=== PATIENT | male | born 1955 | race Caucasian/White ===

== ENCOUNTER 2023-08-30 18:38 | Emergency (ER) | payer MEDICARE, SELFPAY ==
--- NOTE | 2023-08-30 18:42 | ECG_ITS ---
SEE SCANNED COPY FOR CONFIRMED REPORT MTDD
[2023-08-30 18:43] VITALS: O2SAT 94
[2023-08-30 18:45] VITALS: BP 212/106; PULSE 114; RESP 28; TEMP 36.7; O2SAT 80
[2023-08-30] MEDS: IPRATROPIUM BR 0.02% INH SOLN 0.5 MG/2.5 ML VIAL INHALATION (18:50)
[2023-08-30] MEDS: ALBUTEROL SULFATE NEB 2.5 MG/3 ML INH INHALATION (18:50)
--- NOTE | 2023-08-30 19:02 | ED.GENADULT ---
HPI - General Adult General Chief complaint: Shortness of Breath/Dyspnea Stated complaint: Shortness Of Breath Time Seen by Provider: 08/30/23 18:40 Source: patient, RN notes reviewed and old records reviewed Mode of arrival: ambulatory Limitations: no limitations History of Present Illness HPI narrative: 67-year-old male with no significant medical history states for the last 9 days he has been extremely short of breath, productive cough, sinus congestion and drainage. Patient has not seen a doctor since before 2011. On arrival patient only talking 2-3 word sentences, retractions noted, blood pressure elevated, tachycardic saturations in 80% On arrival patient placed in room 1, vitals obtained, placed on oxygen. Patient was given a DuoNeb in clinic Onset (ago): day(s) () Associated symptoms: cough, fever/chills and shortness of breath Treatments prior to arrival: none Related Data Allergies Allergy/AdvReac Type Severity Reaction Status Date / Time poison rj extract Allergy Unknown Verified 07/31/15 12:46 Wasp Allergy Unknown Uncoded 07/31/15 12:46 Review of Systems Review of Systems: All systems reviewed & are unremarkable except as noted in HPI and below Constitutional: Constitutional: Reports as per HPI and Reports fatigue Eyes: Eyes: Reports no additional eye complaints ENT: Reports as per HPI and Reports nasal congestion Cardiovascular: Cardiovascular: Reports no additional cardiovascular complaints, Denies chest pain and Denies dyspnea Respiratory: Respiratory: Reports as per HPI, Reports chest congestion, Denies cough and Reports dyspnea Gastrointestinal: Gastrointestinal: Reports no additional gastrointestinal complaints, Denies abdominal pain, Denies nausea and Denies vomiting Neurologic: Reports system reviewed and no additional complaints, except as documented Allergic/Immunologic: Allergic/Immunologic: Reports no additional allergic/immunologic complaints [facility] Past Medical History Medical History (Updated 08/30/23 @ 19:16 by Ratna Brian APRN) Patient denies medical problems Surgical History Surgical History (Updated 08/30/23 @ 19:06 by Ratna Brian APRN) History of appendectomy Social History Social History (Updated 08/30/23 @ 19:06 by Ratna Brian APRN) Smoking status: Current every day smoker Tobacco type: cigarettes Additional smoking assessment comments: Patient been smoking since age 14. Living arrangements: with family Gender identity (if verbalized by the patient): Male Comments At the time of my signature, I reviewed and agree with the nursing past medical, surgical, social, and family history. There is no relevant family history pertinent to the patient complaint. Exam Const: General: cooperative, well developed, alert, acute distress respiratory, ill appearing chronically, uncomfortable and well nourished Nutritional Appearance: well nourished Orientation/consciousness: patient oriented x3 Limitations: no limitations HENMT: Head: normal to inspection Ears: hearing grossly normal bilaterally and external ears normal Face/Nose/Sinus: Normal external nose present and face symmetric Face and sinus: normal facial exam and face symmetric Mouth: Yes Normal oral and palatal mucosa present Eyes: General: appearance normal, both eyes and all related structures Alignment and Position: alignment normal Periorbital: periorbital findings normal Pupils: Equal, round and reactive pupils present EOM: EOMs intact bilaterally Neck: Neck: normal visual inspection, full ROM, no lymphadenopathy and no meningeal signs Chest: Chest palpation & inspection: no tenderness Resp: Effort & Inspection: abnormal respiratory pattern, labored, respiratory distress, retractions intercostal and supraclavicular, no stridor, tachypneic and uses accessory muscles Auscultation: no crackles, no rales, no rhonchi, wheezes and diminished lung sounds bilateral throughout Cardio: Rate: ta
== END 2023-08-30 18:53 | disposition short-term general hospital (02) ==
PROVIDERS: Emergency Provider Nurse Practitioner
DX: R06.03 Acute respiratory distress (principal); R03.0 Elevated blood-pressure reading, without diagnosis of hypertension; R09.02 Hypoxemia; F17.210 Nicotine dependence, cigarettes, uncomplicated
CPT/HCPCS: 93005; 94640; 99215; G0463

== ENCOUNTER 2023-08-30 19:14 | Emergency (ER) | payer MEDICARE, SELFPAY ==
[2023-08-30] VITALS (9 sets, daily range): BP systolic 151–155; BP diastolic 77–110; PULSE 102–127; RESP 18–21; TEMP 36.8; O2SAT 94–100
--- NOTE | ~2023-08-30 | XR_ITS ---
EXAMINATION: XR chest 1V portable Exam Date/Time: 08/30/2023 19:32 CDT HISTORY: sob Comparison: None. RESULT: Lines, tubes, and devices: None. Lungs and pleura: Clear. Cardiomediastinal silhouette: Unremarkable. Other: No acute osseous or upper abdominal finding. IMPRESSION: No acute cardiopulmonary process. Reviewed, dictated and finalized at location K.
--- NOTE | 2023-08-30 19:15 | ECG_ITS ---
SEE SCANNED COPY FOR CONFIRMED REPORT MTDD
[2023-08-30 19:44] LABS: Basophils Absolute Auto 0.1 K/mm3 (0.0-0.1); Basophils Percent Auto 0.8 % (0.2-1.2); Eosinophils Absolute Auto 0.5 K/mm3 (0-0.3); Hematocrit 46.3 % (42.0-52.0); Hemoglobin 15.5 g/dL (14.0-18.0); Immature Granulocyte Absolute 0.02 K/mm3 (0.00-0.031); Immature Granulocyte Percent A 0.2 % (0-0.5); Lymphocytes Absolute Auto 1.61 K/mm3 (0.9-3.2); Lymphocytes Percent Auto 15.8 % (18.3-44.2); Mean Corpuscular HGB Conc 33.5 g/dl (32-36); Mean Corpuscular Hemoglobin 29.1 pg (26-34); Mean Corpuscular Volume 86.9 fl (80-100); Mean Platelet Volume 9.5 fl (7.4-10.4); Monocytes Absolute Auto 0.9 K/mm3 (0.1-0.6); Monocytes Percent Auto 8.6 % (2.6-8.5); Neutrophils Absolute Auto 7.1 K/mm3 (1.3-6.7); Neutrophils Percent Auto 69.6 % (45.5-73.1); Platelet Count Result 286 k/mm3 (150-375); Red Blood Count 5.33 M/mm3 (4.6-6.20); Red Cell Distribution Width 11.8 % (11.5-14.5); White Blood Count 10.2 K/mm3 (4.5-10.0)
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
[2023-08-30 19:53] LABS: Alanine Aminotransferase 47 U/L (6-50); Albumin Level 4.6 g/dL (3.5-5.1); Alkaline Phosphatase 76 U/L (38-126); Anion Gap 9 mmol/L (4-12); Aspartate Amino Transferase 35 U/L (17-59); Bilirubin,Total 0.6 mg/dL (0.2-1.3); Blood Urea Nitrogen 18 mg/dL (9-20); Calcium 9.3 mg/dL (8.4-10.2); Carbon Dioxide 26 mmol/L (22-30); Chloride 106 mmol/L (98-107); Estimated CRCL calculation 83 ml/min; Estimated Glomerular Filt Rate > 60; Glucose 137 mg/dL (65-110); Potassium 3.7 mmol/L (3.4-5.0); Sodium 141 mmol/L (137-145)
[2023-08-30 20:02] LABS: NT Pro B Type Natriuretic Pept 161 pg/mL (19.9-100)
[2023-08-30 20:20] LABS: Influenza A QL RT-PCR Negative (Negative); Influenza B QL RT-PCR Negative (Negative); RSV RNA, RT-PCR Negative (Negative); SARS-CoV-2 RNA PCR Negative (Negative)
[2023-08-30] MEDS: IPRATROPIUM BR 0.02% INH SOLN 0.5 MG/2.5 ML VIAL 1.5 MG INHALATION (20:43)
[2023-08-30] MEDS: ALBUTEROL SULFATE NEB 2.5 MG/3 ML INH 15 MG INHALATION (20:43)
[2023-08-30 20:53] LABS: Alveolar/Arterial O2 Gradient 73.2 mmHg; Base Excess ABG -1.3 mEq/l (+/-2.0); Carboxyhemoglobin 0.3 % THb (0-2.0); Fractional Inspired Oxygen 25 %; Methemoglobin ABG 0.2 %THb (0-1.5); Oxygen Content ABG 20.3 %vol (16.0-22.0); Oxygen Saturation ABG 93.9 % (95.0-100.0); Oxyhemoglobin 92.5 % THb (90.0-100.0); PO2 ABG 65.9 mmHg (80.0-100.0); PO2 FiO2 Ratio Arterial Blood 2.64 %; Total Hemoglobin 15.6 g/dL (12.0-18.0); pH ABG 7.441 (7.350-7.450)
[2023-08-30 20:54] LABS: Device NASAL CANNULA; Modified Allen's Test Pass; Site Drawn LEFT RADIAL
[2023-08-30] MEDS: ALBUTEROL SULFATE (*SP) INHALER 2 PUFF INHALATION (22:56)
== END 2023-08-30 23:04 | disposition home or self-care (01) ==
PROVIDERS: Emergency Medicine; Emergency Provider Physician Assistant
DX: J20.9 Acute bronchitis, unspecified (principal); F17.210 Nicotine dependence, cigarettes, uncomplicated; Z20.822 Contact with and (suspected) exposure to COVID-19
CPT/HCPCS: 36415; 36600; 71045; 80053; 82375; 82805; 83050; 83880; 85025; 87637; 93005; 94640; 94664; 99284; A9270

== ENCOUNTER 2023-09-08 18:13 | Emergency (ER) | payer MEDICARE, SELFPAY ==
[2023-09-08 18:21] VITALS: BP 174/86; PULSE 107; RESP 20; TEMP 36.7; O2SAT 93
--- NOTE | 2023-09-08 18:25 | ED.SOB ---
HPI - SOB/Dyspnea General Chief Complaint: Shortness of Breath/Dyspnea Stated Complaint: Shortness of Breath Time Seen by Provider: 09/08/23 18:41 Source: patient and RN notes reviewed Mode of arrival: ambulatory Limitations: no limitations History of Present Illness HPI Narrative: 67-year-old male presents with concern for shortness of breath. Reports he was seen in the emergency room about a week ago, he was given breathing treatments and was sent home with a prescription for steroid which he finished. Reports when he finished the steroid his symptoms slowly start to return and he has been having worsening shortness of breath the last few days. He denies fever. He reports he last used his albuterol inhaler to prior to arrival. MD elicited complaint: shortness of breath Related Data Allergies Allergy/AdvReac Type Severity Reaction Status Date / Time poison rj extract Allergy Unknown Unknown Verified 09/08/23 18:29 Wasp Allergy Unknown Unknown Uncoded 09/08/23 18:29 Review of Systems Review of Systems: CONSTITUTIONAL: Denies malaise, chills, sweats, or fever. ENT: Denies rhinorrhea, congestion, sinus pain, otalgia and sore throat. CARDIOVASCULAR: Denies chest pain, palpitations, or edema. RESPIRATORY: Reports cough, wheezing, dyspnea. GASTROINTESTINAL: Denies abdominal pain, nausea, vomiting, diarrhea SKIN: Denies rash or itching. MUSCULOSKELETAL: Denies myalgia. NEUROLOGIC: Denies headache. All systems reviewed & are unremarkable except as noted in HPI and below PMFSH Past Medical History Medical History (Updated 09/08/23 @ 19:35 by Ratna Pak NP) Patient denies medical problems Surgical History Surgical History (Updated 08/30/23 @ 19:06 by Ratna Brian APRN) History of appendectomy Social History Social History (Updated 08/30/23 @ 19:06 by Ratna Brian APRN) Smoking status: Current every day smoker Tobacco type: cigarettes Additional smoking assessment comments: Patient been smoking since age 14. Living arrangements: with family Gender identity (if verbalized by the patient): Male Comments At time of signature, agree with nursing past medical, surgical, social and family history. There is no relevant family history pertinent to the presenting complaint Exam Narrative: GENERAL: Nontoxic-appearing, well-nourished, and in no acute distress. HEAD: Normocephalic EYES: PERRLA, conjunctivae clear ENT: Nares clear. Mucous membranes moist. TM pearly ramos with dull light reflex bilaterally; no tragal tenderness. Oropharynx not erythematous without lesions. Tonsils not enlarged and without exudate, no drooling, no hoarseness, no trismus, uvula midline. NECK: Supple. No lymphadenopathy CHEST: Scattered expiratory and inspiratory wheeze, with scattered rhonchi. Breath sounds equal. No rales, or stridor. No respiratory distress, speaks in full sentences. HEART: Regular rate and rhythm. No murmur heard. SKIN: Warm, dry, no rash. NEURO: Alert and oriented x3. PSYCH: Normal mood and affect Course Course Emergency Course: Patient is aware of diagnosis, understands and agrees to treatment plan. Anticipatory guidance given. Patient agrees to follow-up as directed and is aware of reasons to seek care at the emergency department. Portions of this record may have been created with voice recognition software Level of Care: Express Care Visit Reevaluation(s) Reevaluation #1: Re-evaluation after DuoNeb with not much improvement to patient's lung sounds. Will repeat DuoNeb and do IM steroid. I advised patient that after 2 DuoNebs and steroid if his lung sounds do not improve he will need to be transferred to the emergency room Date: 09/08/23 Time: 19:14 Reevaluation #2: Re-evaluated after the 2nd DuoNeb. Lung sounds improved, still scattered wheeze, patient reports symptoms are improved. Will discharge with steroid, antibiotic, nebulizer solution and neb prescription. Anticipatory guidance
[2023-09-08] MEDS: ALBUTEROL SULFATE NEB 2.5 MG/3 ML INH INHALATION ×2 (18:49→19:13)
[2023-09-08] MEDS: IPRATROPIUM BR 0.02% INH SOLN 0.5 MG/2.5 ML VIAL INHALATION ×2 (18:49→19:12)
[2023-09-08] MEDS: methylPREDNISolone SOD SUCC 125 MG VIAL IM (19:13)
== END 2023-09-08 19:47 | disposition home or self-care (01) ==
PROVIDERS: Emergency Provider Nurse Practitioner
DX: R06.2 Wheezing (principal); F17.210 Nicotine dependence, cigarettes, uncomplicated
CPT/HCPCS: 94640; 96372; 99213; G0463; J2919

== ENCOUNTER 2023-10-01 11:03 | Emergency (ER) | payer MEDICARE, SELFPAY ==
--- NOTE | ~2023-10-01 | XR_ITS ---
EXAMINATION: XR chest 2V 10/01/2023 11:34 INDICATION: Cough for one month PROCEDURE: 2 view chest COMPARISON: 08/30/2023 FINDINGS: The lungs are clear. The cardiomediastinal silhouette is within normal limits. There are no pleural effusions. There is no pneumothorax suspected. IMPRESSION: 1: NO ACUTE CARDIOPULMONARY DISEASE. Reviewed, dictated and finalized at location B.
[2023-10-01 11:19] VITALS: BP 144/78; PULSE 124; RESP 24; TEMP 36.3; O2SAT 90
--- NOTE | 2023-10-01 11:19 | ED.GENADULT ---
HPI - General Adult General Chief complaint: Upper Respiratory Infection Stated complaint: sob Time Seen by Provider: 10/01/23 11:19 History of Present Illness HPI narrative: 67-year-old male presents with complaint of cough, chest congestion, wheezing, shortness of exertion for the past month. patient reports worsening of symptoms over the past week. Waking up at night feeling short of breath, like he is suffocating and coughing. Has to run to the bathroom in the middle night due to cough causing him to be incontinent. Patient was seen at [place] in August and seen at [facility] and september. Given albuterol inhaler, albuterol neb and nebulizer machine. Has been on 2 courses of oral prednisone. Last checks x-ray in August was normal. Has appointment with [facility] November 02. Patient currently does not have a primary care physician. All systems reviewed and negative except as noted above. Related Data Home Medications Medication Instructions Recorded Confirmed albuterol 90 mcg/actuation aerosol 90 mcg inhalation PRN PRN 10/01/23 10/01/23 inhaler Shortness Of Breath Or Wheezing Allergies Allergy/AdvReac Type Severity Reaction Status Date / Time poison rj extract Allergy Severe Anaphylaxis Verified 10/01/23 11:32 Wasp Allergy Severe Anaphylaxis Uncoded 10/01/23 11:32 Review of Systems Review of Systems: CONSTITUTIONAL: Denies fever, chills, or sweats. EYES: Denies visual changes, redness, or discharge. ENT: Denies rhinorrhea, congestion, sore throat, or otalgia. CARDIOVASCULAR: Denies chest pain, palpitations, or edema. RESPIRATORY: Reports cough, wheezing, chest tightness, dyspnea with exertion. GASTROINTESTINAL: Denies abdominal pain, nausea, vomiting, or diarrhea. GENITOURINARY: Denies dysuria or hematuria. SKIN: Denies rash or itching. MUSCULOSKELETAL: Denies back pain, joint pain, or myalgia. NEUROLOGIC: Denies headache, numbness, or weakness. PSYCHIATRIC: Denies anxiety or depression. All other systems reviewed are negative, except as documented in HPI. [facility] Past Medical History Medical History (Updated 10/01/23 @ 12:16 by Adriana Randolph NP) Patient denies medical problems Surgical History Surgical History (Updated 08/30/23 @ 19:06 by Ratna Brian APRN) History of appendectomy Social History Social History (Updated 08/30/23 @ 19:06 by Ratna Brian, CHARLES) Smoking status: Current every day smoker Tobacco type: cigarettes Additional smoking assessment comments: Patient been smoking since age 14. Living arrangements: with family Gender identity (if verbalized by the patient): Male Comments At time of signature, agree with nursing past medical, surgical, social and family history. There is no relevant family history pertinent to the presenting complaint. Exam Narrative: GENERAL: This is a well-nourished, well-developed patient, in no apparent distress. HEAD: normocephalic, atraumatic. EYES: PERRL. Sclera clear/white. Vision is grossly intact. EARS: External ears normal, auditory canals clear and without drainage, TMs normal without perforation. Hearing grossly intact. NOSE: External nose normal with no obvious nasal discharge, nares without redness, no rhinorrhea. THROAT: Mucous membranes moist, posterior pharynx clear. NECK: Neck supple, non-tender without lymphadenopathy, masses or thyromegaly. CARDIOVASCULAR: Regular rate and rhythm without murmurs, gallops, or rubs. RESPIRATORY: wheezing on expiration worse to right lung shultz. Breath sounds equal bilaterally. No rales, or rhonchi. GASTROINTESTINAL: Abdomen soft, non-tender, nondistended. Bowel sounds are active. No hepato-splenomegaly, or palpable masses. No guarding. SKIN: warm, Dry, intact with no suspicious lesions or rash, good texture and turgor. NEURO: awake, alert, and oriented to person, place and time. There were no obvious focal neurologic abnormalities. EXTREMITIES: No joint tendern
[2023-10-01] MEDS: IPRATROPIUM 0.5 MG/ALBUTEROL SULFATE 2.5 MG AMPUL.NEB 3 ML INHALATION (11:37)
[2023-10-01 11:40] VITALS: PULSE 124; RESP 24; O2SAT 90
[2023-10-01 11:55] VITALS: PULSE 128; RESP 24; O2SAT 90
== END 2023-10-01 12:16 | disposition short-term general hospital (02) ==
PROVIDERS: Emergency Provider Nurse Practitioner Family; Referring Provider Emergency Medicine
DX: R09.02 Hypoxemia (principal); R06.2 Wheezing; F17.210 Nicotine dependence, cigarettes, uncomplicated
CPT/HCPCS: 71046; 94640; 99213; G0463

== ENCOUNTER 2023-10-01 12:38 | Inpatient (IN) | payer MEDICARE, SELFPAY ==
[2023-10-01] VITALS (17 sets, daily range): BP systolic 153–176; BP diastolic 69–96; PULSE 56–120; RESP 16–24; TEMP 36.8–36.9; O2SAT 86–99
--- NOTE | ~2023-10-01 | XR_ITS ---
Clinical Indication: Shortness of breath PA and lateral views of the chest: Comparison: 10/01/2023 at 11:32 AM Findings: The lungs are clear, without evidence of focal consolidation or pleural effusion. Cardiome diastinal silhouette is within normal limits. Bones and soft tissues are unremarkable. Impression: Normal chest. Reviewed, dictated and finalized at location . Impression: Normal chest.
--- NOTE | ~2023-10-01 | US_ITS ---
EXAMINATION:US venous doppler LE BI INDICATION:DVT. Shortness of breath. TECHNIQUE: Multiple grayscale, color flow and Doppler images of the right and left lower extremity de ep venous systems were obtained and reviewed. COMPARISON:No prior studies for comparison. FINDINGS: The common femoral, superficial femoral and popliteal veins demonstrate normal respiratory variation, augmentation and compressibility. Color flow is also seen within the posterior tibial, pe roneal, greater saphenous and profunda veins. IMPRESSION: 1: No lower extremity deep venous thrombosis. Reviewed, dictated and finalized at location B.
--- NOTE | ~2023-10-01 | CT_ITS ---
EXAMINATION: CTA chest PE protocol DATE: 10/03/2023 16:51 INDICATION: Shortness of breath. TECHNIQUE: Computed tomography angiography (CTA) of the chest was performed with 100 mL Omnipaque-350 intravenous contrast timed to evaluate the pulmonary arteries. Coronal maximum intensity projection 3D-reconstructions were created by the technologist. Automated exposure control and iterative reconst ruction technique were employed. The dose-length product was 647.91 mGy-cm. COMPARISON: None. FINDINGS: There is mild emphysema. There is mild scarring at the lung apices. There is mucous pluggin g in the lower lobes. There is mild atelectasis bilaterally. Calcified pulmonary nodules and calcifie d hilar mediastinal lymph nodes are consistent with old granulomatous disease. No pleural effusion. T he heart size is normal. No pericardial effusion. There is no pulmonary embolus. There is a 16 mm cys t in left kidney. Calcifications in the spleen are consistent with old granulomatous disease. There i s mild chronic anterior wedging of multiple vertebral bodies. There is moderate thoracic spondylosis. IMPRESSION: 1. No pulmonary embolus. 2. Mild emphysema. 3. Mucous plugging in the lower lobes. Reviewed, dictated and finalized at location A.
--- NOTE | 2023-10-01 13:02 | ECG_ITS ---
[facility] [address] Test Date: 2023-10-01 Pat Name: Rigoberto Paulino Department: Room: Gender: M Copy Operator: : 1955 Requested By: Pascual Panchal Order Number: [id number] Tamar MD: Bryson Blake D.O. Measurements Intervals Lulu Rate: 115 P: 73 [place]: 156 QRS: 67 QRSD: 81 T: 57 QT: 326 QTc: 452 Interpretive Statements SINUS TACHYCARDIA LOW QRS VOLTAGE IN LIMB LEADS BORDERLINE ST ABNORMALITY- ANTEROLATERAL LEADS ABNORMAL ECG No previous ECG available for comparison Electronically Signed On 10-02-2023 08:52:25 CDT by Bryson Blake D.O.
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
[2023-10-01 13:21] LABS: Basophils Percent Auto 0.5 % (0.2-1.2); Eosinophils Absolute Auto 0.4 K/mm3 (0-0.3); Eosinophils Percent Auto 5.3 % (0-4.4); Hematocrit 45.5 % (42.0-52.0); Hemoglobin 15.3 g/dL (14.0-18.0); Immature Granulocyte Absolute 0.02 K/mm3 (0.00-0.031); Immature Granulocyte Percent A 0.3 % (0-0.5); Lymphocytes Absolute Auto 1.66 K/mm3 (0.9-3.2); Lymphocytes Percent Auto 20.8 % (18.3-44.2); Mean Corpuscular HGB Conc 33.6 g/dl (32-36); Mean Corpuscular Hemoglobin 29.4 pg (26-34); Mean Corpuscular Volume 87.5 fl (80-100); Mean Platelet Volume 9.3 fl (7.4-10.4); Monocytes Absolute Auto 0.8 K/mm3 (0.1-0.6); Monocytes Percent Auto 9.5 % (2.6-8.5); Neutrophils Absolute Auto 5.1 K/mm3 (1.3-6.7); Neutrophils Percent Auto 63.6 % (45.5-73.1); Platelet Count Result 304 k/mm3 (150-375)
[2023-10-01] MEDS: ALBUTEROL SULFATE NEB 2.5 MG/3 ML INH 5 MG INHALATION (13:27)
[2023-10-01] MEDS: methylPREDNISolone SOD SUCC 125 MG VIAL IV PUSH (13:31)
[2023-10-01 13:33] LABS: Alanine Aminotransferase 45 U/L (6-50); Albumin Level 4.2 g/dL (3.5-5.1); Alkaline Phosphatase 93 U/L (38-126); Anion Gap 5 mmol/L (4-12); Aspartate Amino Transferase 35 U/L (17-59); Bilirubin,Total 0.6 mg/dL (0.2-1.3); Blood Urea Nitrogen 14 mg/dL (9-20); Calcium 8.8 mg/dL (8.4-10.2); Carbon Dioxide 26 mmol/L (22-30); Chloride 108 mmol/L (98-107); Estimated CRCL calculation 100 ml/min; Estimated Glomerular Filt Rate > 60; Glucose 111 mg/dL (65-110); Potassium 3.8 mmol/L (3.4-5.0); Sodium 139 mmol/L (137-145)
[2023-10-01 14:08] LABS: Influenza A QL RT-PCR Negative (Negative); Influenza B QL RT-PCR Negative (Negative); RSV RNA, RT-PCR Negative (Negative); SARS-CoV-2 RNA PCR Negative (Negative)
--- NOTE | 2023-10-01 16:17 | ADMGEN ---
This patient, Rigoberto Paulino, was admitted to 3 Med Surg Room 303-01. Patient/family oriented to hospital policies and general routines including ID bracelet, bed and alarms, visiting hours, pain management, procedures, bathroom and other care routines, personal items, smoking policy, room service/diet, and visiting hours. Information on how to activate the Rapid Response Team has been discussed. Patient/Family are encouraged to report perceived risks to care and to ask questions if they do not understand what they are told or what they should do.
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
[2023-10-01] MEDS: methylPREDNISolone SOD SUCC 125 MG VIAL 60 MG IV PUSH (17:39)
[2023-10-01] MEDS: ALBUTEROL SULFATE NEB 2.5 MG/3 ML INH INHALATION ×2 (17:57→21:15)
[2023-10-01] MEDS: AZITHROMYCIN 250 MG TABLET 500 MG PO (22:31)
[2023-10-02] VITALS (17 sets, daily range): BP systolic 146–159; BP diastolic 64–74; PULSE 104–127; RESP 16–20; TEMP 36.4–37.1; O2SAT 93–94
[2023-10-02] MEDS: methylPREDNISolone SOD SUCC 125 MG VIAL 60 MG IV PUSH ×5 (00:05→23:13)
[2023-10-02] MEDS: LEVALBUTEROL NEB 1.25 MG/3 ML INHALATION ×5 (00:44→20:04)
[2023-10-02] MEDS: IPRATROPIUM BR 0.02% INH SOLN 0.5 MG/2.5 ML VIAL INHALATION ×5 (00:44→20:04)
[2023-10-02 06:26] LABS: Hematocrit 48.4 % (42.0-52.0); Hemoglobin 15.5 g/dL (14.0-18.0); Mean Corpuscular Hemoglobin 28.8 pg (26-34); Mean Corpuscular Volume 89.8 fl (80-100); Mean Platelet Volume 9.4 fl (7.4-10.4); Platelet Count Result 347 k/mm3 (150-375); Red Blood Count 5.39 M/mm3 (4.6-6.20); Red Cell Distribution Width 11.9 % (11.5-14.5); White Blood Count 11.2 K/mm3 (4.5-10.0)
[2023-10-02 06:34] LABS: Anion Gap 9 mmol/L (4-12); Blood Urea Nitrogen 15 mg/dL (9-20); Calcium 9.1 mg/dL (8.4-10.2); Carbon Dioxide 22 mmol/L (22-30); Chloride 106 mmol/L (98-107); Estimated CRCL calculation 90 ml/min; Estimated Glomerular Filt Rate > 60; Glucose 147 mg/dL (65-110); Magnesium 2.1 mg/dL (1.6-2.3); Sodium 137 mmol/L (137-145)
--- NOTE | 2023-10-02 06:58 | PM.IMPN ---
Progress Note: A&P Assessment and Plan (1) Acute respiratory failure with hypoxia: Code(s): J96.01 - Acute respiratory failure with hypoxia Status: Acute Assessment and Plan: SpO2 on arrival was low 90s at rest and dropped to 86% with ambulation. Room air at baseline. Started on 2L NC in the ED. - Symptoms: shortness of breath, cough, wheezing - Monitor Oxygen saturation, Oxygen via NC; wean oxygen as tolerated, keep SpO2 greater than 88% - Likely related to COPD, see #2 - Pulmonology following, appreciate recommendations (2) COPD (chronic obstructive pulmonary disease): Code(s): J44.9 - Chronic obstructive pulmonary disease, unspecified Status: Acute Assessment and Plan: Greater than 150 pack year history, quit August 2023 due to symptom onset. Continues to endorse shortness of breath, wheezing and productive cough. - Antibiotics: Azithromycin and Rocephin - Duonebz q6H and Albuterol q2H prn - Solu-Medrol 60 mg IVq12H - Monitor vital signs, I&Os, neuro status and patient is a fall risk - Monitor serum electrolytes, cultures and CBC - Monitor Oxygen saturation, Oxygen via NC; wean oxygen as tolerated, keep SpO2 greater than 88% - Sputum culture collected 09/30: Pending - MRSA pending - Pulmonology following (3) Elevated blood pressure reading: Code(s): R03.0 - Elevated blood-pressure reading, without diagnosis of hypertension Status: Acute Assessment and Plan: Blood pressures continue to be elevated, however patient continues to receive steroids. - Continue to monitor (4) Tachycardia: Code(s): R00.0 - Tachycardia, unspecified Status: Acute Assessment and Plan: Patient remains in sinus tachycardia, however he is receiving steroids and breathing treatments. Of note he has a history of cocaine use, he states he has not used since 2010. Echo ordered for possible cocaine induced cardiomyopathy. 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 He remains in sinus tachy. - UDS - Echo for possible cardiomyopathy Plan Cocern for AMANDO: Patient notes that he has been waking up every 1-2 hours overnight gasping for air requiring him to use his breathing treatment. He has since become fearful of sleep. He states these symptoms started at the start of his COPD symptoms. Apnea link ordered Time Spent With Patient Time with patient: 25 - 35 minutes Subjective Date/time seen: 10/02/23 06:58 Interval history: 67-year-old male former smoker (greater than 150 pack-year history, quit August 2023) with suspected chronic obstructive pulmonary disease who presented to the emergency department from urgent care for evaluation of shortness of breath and hypoxia. Patient is pleasant lying comfortably in bed. He remains on O2 supplementation at this time. He notes that he has been unable to walk short distances without becoming increasingly short of breath. Prior to this admission he was using a home breathing treatment every 3-4 hours without much relief. Patient states that he is fearful of sleep. He notes that since August he has been waking up gasping for air. He states that he only gets around 1-2 hours of sleep before these episodes occur. He sleeps in bed and his snoring causes his to sleep in the living room. Apnea link ordered for possible AMANDO. Patient continues to be in sinus tachycardia. Of note he has a history of cocaine use, he states he last used in 2010. UDS ordered. Echo also ordered for possible cardiomyopathy. Patient denies chest pain, palpitations, nausea/vomiting, and changes in bowel/bladder. Patient notes that he has not seen a PCP since the s. Care coordination has given patient PCP information. Review of Systems Review of Systems: All syste
[2023-10-02] MEDS: ENOXAPARIN 40 MG/0.4 ML SYRINGE SUB-Q (08:50)
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
[2023-10-02 14:02] LABS: Appearance Urine Clear (Clear); Bilirubin Urine Negative (Negative); Blood Urine Negative (Negative); Color Urine Yellow (Yellow); Glucose Urine UA 1+ mg/dL (Negative); Ketones Urine Trace mg/dL (Negative); Leukocyte Esterase Ur Negative LEU/UL (Negative); Nitrate Urine Negative (Negative); Protein Urine Negative (Negative); Specific Grav Ur 1.026 (1.001-1.035); Urobilinogen Urine 0.2 mg/dL (<2.0); pH Urine 5.5 (5.0-9.0)
[2023-10-02 14:06] LABS: Add Urine Microscopic? NO
[2023-10-02 14:19] LABS: Amphetamine Screen Urine Negative (Negative); Barbiturate Screen Urine Negative (Negative); Benzodiazepines Screen Urine Negative (Negative); Cannabinoid Screen Urine Negative (Negative); Cocaine Screen Urine Negative (Negative); Methadone Screen Urine Negative (Negative); Opiate Screen Urine Negative (Negative); Phencyclidine Screen Urine Negative (Negative)
[2023-10-02 18:54] LABS: MRSA (PCR) NOT DETECTED (NOT DETECTE)
[2023-10-02] MEDS: AZITHROMYCIN 250 MG TABLET PO (20:40)
[2023-10-03] VITALS (16 sets, daily range): BP systolic 143–166; BP diastolic 69–88; PULSE 105–125; RESP 16–20; TEMP 36.6–36.8; O2SAT 93–98
--- NOTE | 2023-10-03 | ECHO_ITS ---
Patient Info Name: Rigoberto Paulino Age: 67 years : 1955 Gender: Male Ht: 72 in Wt: 223 lbs BSA: 2.29 m2 HR: 107 bpm BP: 146 / 71 mmHg Heart Rhythm: Sinus Rhythm Technical Quality: Fair Exam Date: 10/03/2023 8:13 AM Exam Location: Echo Lab Patient Status: Outpatient Admit Date: 10/01/2023 Staff Ordering Physician: Cherelle Powers PA-C Drop Forger: Kim Leigh RDCS Attending Provider: Cherelle Powers PA-C Referring Physician: Priya MCMANUS; Exam Type: CA echo dop color flow w con Study Info Indications - for new onset CHF Complete two-dimensional, color flow and Doppler transthoracic echocardiogram is performed with contrast to opacify the left ventricle and to improve the deliniation of the left ventricle endocardial borders. Contrast/Agitated Saline Contrast/Ag. Saline: Definity Amount: 2.00 ml Administered By: Kim Leigh RDCS Existing IV Access: Yes IV Access Condition: patent with no signs of infiltration Summary 1. Technically challenging echocardiogram with reduced image quality, difficult position. 2. Hyperdynamic left ventricular systolic function with LVH and grade 1 diastolic noncompliance. 3. No valvular dysfunction. Left Ventricle Left ventricular chamber dimension is normal. Left ventricular systolic function is hyperdynamic, estimated at >70%. There is mild concentric increased left ventricular wall thickness. The left ventricular diastolic function is grade I diastolic dysfunction. Right Ventricle Right ventricular chamber dimension is normal. Left Atria Left atrial chamber dimension is normal. Right Atria Right atrial chamber dimension is normal. Aortic Valve The aortic valve is trileaflet. There is mild aortic valve sclerosis. Pulmonic Valve The pulmonic valve is not well visualized. Mitral Valve The mitral valve has normal leaflets. Tricuspid Valve The tricuspid valve leaflets are normal. Pericardium/Pleural The pericardium appears normal. Aorta The aortic root size at the sinus of Valsalva is normal. Left Ventricular Outflow Tract Name Value Normal LVOT 2D LVOT Diameter 2.00 cm LVOT Doppler LVOT Peak Gradient 4 mmHg LVOT Mean Gradient 2 mmHg LVOT VTI 14.18 cm LVOT VTI/AV VTI Ratio 0.67 LVOT Stroke Volume 44.33 ml LVOT CO 5.01 l/min LVOT CI 2.19 L/min/m2 Mitral Valve Name Value Normal MV Doppler MV Decel [place] 949.89 cm/s2 MV PHT 0 s MV Area (PHT) 8.18 cm2 4.00-5.00 MV Diastolic Function MV E Peak Velocity 88.09 cm/s MV A Peak
[2023-10-03] MEDS: IPRATROPIUM BR 0.02% INH SOLN 0.5 MG/2.5 ML VIAL INHALATION ×6 (04:38→23:18)
[2023-10-03] MEDS: LEVALBUTEROL NEB 1.25 MG/3 ML INHALATION ×6 (04:38→23:18)
--- NOTE | 2023-10-03 05:12 | PCRCNOTE ---
0000 neb tx was omitted due to apnea study
[2023-10-03] MEDS: methylPREDNISolone SOD SUCC 125 MG VIAL 60 MG IV PUSH ×2 (05:40→17:25)
[2023-10-03 06:10] LABS: Basophils Percent Auto 0.1 % (0.2-1.2); Hematocrit 47.5 % (42.0-52.0); Hemoglobin 15.3 g/dL (14.0-18.0); Immature Granulocyte Absolute 0.14 K/mm3 (0.00-0.031); Immature Granulocyte Percent A 0.8 % (0-0.5); Lymphocytes Absolute Auto 1.17 K/mm3 (0.9-3.2); Lymphocytes Percent Auto 6.3 % (18.3-44.2); Mean Corpuscular HGB Conc 32.2 g/dl (32-36); Mean Corpuscular Volume 90.1 fl (80-100); Mean Platelet Volume 9.6 fl (7.4-10.4); Monocytes Absolute Auto 0.6 K/mm3 (0.1-0.6); Neutrophils Absolute Auto 16.6 K/mm3 (1.3-6.7); Neutrophils Percent Auto 89.8 % (45.5-73.1); Platelet Count Result 363 k/mm3 (150-375); Red Blood Count 5.27 M/mm3 (4.6-6.20); Red Cell Distribution Width 12.2 % (11.5-14.5); White Blood Count 18.5 K/mm3 (4.5-10.0)
[2023-10-03 06:26] LABS: Alanine Aminotransferase 63 U/L (6-50); Albumin Level 4.3 g/dL (3.5-5.1); Alkaline Phosphatase 77 U/L (38-126); Anion Gap 7 mmol/L (4-12); Aspartate Amino Transferase 39 U/L (17-59); Bilirubin,Total 0.5 mg/dL (0.2-1.3); Blood Urea Nitrogen 19 mg/dL (9-20); Calcium 9.3 mg/dL (8.4-10.2); Carbon Dioxide 28 mmol/L (22-30); Chloride 105 mmol/L (98-107); Estimated CRCL calculation 80 ml/min; Estimated Glomerular Filt Rate > 60; Glucose 144 mg/dL (65-110); Potassium 4.9 mmol/L (3.4-5.0); Sodium 140 mmol/L (137-145)
--- NOTE | 2023-10-03 07:08 | PM.IMPN ---
Progress Note: A&P Assessment and Plan (1) Acute respiratory failure with hypoxia: Code(s): J96.01 - Acute respiratory failure with hypoxia Status: Acute Assessment and Plan: SpO2 on arrival was low 90s at rest and dropped to 86% with ambulation. Room air at baseline. Started on 2L NC in the ED. - Symptoms: shortness of breath, cough, wheezing - Monitor Oxygen saturation, Oxygen via NC; wean oxygen as tolerated, keep SpO2 greater than 88% - Likely related to COPD, see #2 - Pulmonology following, appreciate recommendations (2) COPD (chronic obstructive pulmonary disease): Code(s): J44.9 - Chronic obstructive pulmonary disease, unspecified Status: Acute Assessment and Plan: Greater than 150 pack year history, quit August 2023 due to symptom onset. Continues to endorse shortness of breath, wheezing and productive cough. - Antibiotics: Azithromycin - Duonebz q6H and Albuterol q2H prn - Solu-Medrol 60 mg IVq12H, if patient condition continues to improve can reduce to 40 mg q12H - Monitor vital signs, I&Os, neuro status and patient is a fall risk - Monitor serum electrolytes, cultures and CBC - Monitor Oxygen saturation, Oxygen via NC; wean oxygen as tolerated, keep SpO2 greater than 88% - Sputum culture collected 09/30: Preliminary results - growth of normal oropharyngeal emmanuel - MRSA negative - Pulmonology following (3) Elevated blood pressure reading: Code(s): R03.0 - Elevated blood-pressure reading, without diagnosis of hypertension Status: Acute Assessment and Plan: Blood pressures continue to be elevated, however patient continues to receive steroids. - Continue to monitor (4) Tachycardia: Code(s): R00.0 - Tachycardia, unspecified Status: Acute Assessment and Plan: Patient remains in sinus tachycardia, however he is receiving steroids and breathing treatments. Of note he has a history of cocaine use, he states he has not used since 2010. 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 He remains in sinus tachy. - UDS negative - Echo for possible cardiomyopathy Plan Cocern for AMANDO: Patient notes that he has been waking up every 1-2 hours overnight gasping for air requiring him to use his breathing treatment. He has since become fearful of sleep. He states these symptoms started at the start of his COPD symptoms. Apnea link negative on 2 L O2 Time Spent With Patient Time with patient: 25 - 35 minutes Subjective Date/time seen: 10/03/23 07:08 Interval history: 67-year-old male former smoker (greater than 150 pack-year history, quit August 2023) with suspected chronic obstructive pulmonary disease who presented to the emergency department from urgent care for evaluation of shortness of breath and hypoxia. Patient is pleasant sitting up in his chair with at bedside. He states that he just finished working with PT and is very short of breath. He notes that during his therapy his heart rate continued to rise and he had worsening shortness of breath with ambulation. He remains on the o2 supplementation at this time. Pulmonology continues to follow and discontinued the rocephin. Since patient is tachycardic with respiratory issues will rule out PE/DVT with CTPE and venous dopplers. Echo was negative. Patient denies chest pain, nausea/vomiting, and changs in bowel/bladder. Review of Systems Review of Systems: All systems reviewed & are unremarkable except as noted in HPI and below Exam Narrative: AF HR 106 RR 16 SpO2 95 2L NC BP 166/88 General: male in no acute respiratory distress who is nontoxic appearing,
[2023-10-03] MEDS: PERFLUTREN LIPID MICROSPHERES 1.5 ML VIAL DILUTED TO 10 ML TOTAL VOLUME IV PUSH (08:21)
--- NOTE | 2023-10-03 08:59 | IVDEFINITY ---
Prior to administration of IV Definity the patient was educated on the risks and benefits of the imaging enhancing agent including potential adverse side effects. The patient verbalized understanding. Allergies were verified. No exclusion criteria were identified and at least one of the following inclusion criteria were met: 1) physician request, 2) patient technically difficult to image (per the [place] [employer] guidelines of two or more segments not discernable within the apical view), or 3) questionable left ventricular function. ?
--- NOTE | 2023-10-03 09:05 | PM.PNPUL ---
Progress Note: A&P Assessment and Plan (1) Acute exacerbation of chronic obstructive pulmonary disease: Code(s): J44.1 - Chronic obstructive pulmonary disease with (acute) exacerbation Status: Acute Assessment and Plan: A 67-year-old patient, who is a smoker, has been experiencing prolonged episodes of coughing, shortness of breath, and chest tightness for over a month. He has been undergoing treatment for a COPD exacerbation, which includes IV steroids, antibiotics, and short-acting bronchodilators. Over the past 24 hours, there has been a gradual improvement in his respiratory condition. The patient's diagnosis is either a COPD exacerbation or a combination of asthma and COPD, also known as overlap syndrome. It should be noted that his eosinophil count was found to be elevated on two separate occasions within the last month. The treatment plan is as follows: Discontinue ceftriaxone, continue with Zithromax, and adjust the dosage of IV steroids to a lower amount, specifically 60 mg of Solu-Medrol twice a day. This dosage may further be reduced to 40 mg of Solu-Medrol twice a day if the patient's condition continues to improve over the weekend. Out of bed to chair, ambulating in room. (2) Hypoxia: Code(s): R09.02 - Hypoxemia Status: Acute (3) COPD (chronic obstructive pulmonary disease): Code(s): J44.9 - Chronic obstructive pulmonary disease, unspecified Status: Acute (4) Acute respiratory failure with hypoxia: Code(s): J96.01 - Acute respiratory failure with hypoxia Status: Acute Subjective Date/time seen: 10/03/23 09:05 Interval history: Patient doing a little better. Less chest tightness. Also coughing wheezing slowly improving. Slept well last night. Review of Systems Review of Systems: All systems reviewed & are unremarkable except as noted in HPI and below (HPI and below) Objective Data Vital Signs Vital Signs: Vital Signs - 24 hr 10/02/23 09:21 10/02/23 09:21 10/02/23 09:27 Temperature Pulse Rate 110 H 110 H 120 H Respiratory Rate 20 20 20 Blood Pressure Pulse Oximetry 94 Oxygen Delivery Nasal Cannula Oxygen Flow Rate 2 10/02/23 09:18 10/02/23 12:50 10/02/23 14:00 Temperature 37.1 C Pulse Rate 108 H 120 H 120 H Respiratory Rate 20 18 Blood Pressure 159/64 H Pulse Oximetry 94 94 Oxygen Delivery Nasal Cannula Oxygen Flow Rate 2 10/02/23 15:29 10/02/23 16:05 10/02/23 13:00 Temperature Pulse Rate 117 H 115 H Respiratory Rate 20 20 Blood Pressure Pulse Oximetry Oxygen Delivery Nasal Cannula Oxygen Flow Rate 2 10/02/23 16:20 10/02/23 20:07 10/02/23 20:05 Temperature Pulse Rate 121 H 127 H Respiratory Rate 20 20 Blood Pressure Pulse Oximetry 93 Oxygen Delivery Nasal Cannula Oxygen Flow Rate 2 10/02/23 20:18 10/02/23 21:28 10/03/23 04:44 Temperature 36.4 C L Pulse Rate 123 H 126 H 105 H Respiratory Rate 20 18 20 Blood Pressure 146/71 H Pulse Oximetry 93 Oxygen Delivery Oxygen Flow Rate 10/03/23 04:58 10/03/23 06:00 10/03/23 07:53 Temperature 36.6 C Pulse Rate 107 H 106 H 105 H Respiratory Rate 20 16 20 Blood Pressure 166/88 H Pulse Oximetry 95 Oxygen Delivery Oxygen Flow Rate 10/03/23 07:53 10/03/23 08:02 Temperature Pulse Rate 110 H Respiratory Rate 20 Blood Pressure Pulse Oximetry 95 Oxygen Delivery Nasal Cannula Oxygen Flow Rate 2 Intake/Output Intake/Output: Intake & Output 09/30/23 10/01/23 10/02/23 10/03/23 23:59 23:59 23:59 23:59 Intake Total 50 1770 540 Output Total 2 1 Balance 50 1768 539 Meds/Results Medications: Active Medications Generic Name Dose Route Start Last Admin Trade Name Freq PRN Reason Stop Dose Admin Acetaminophen 650 mg 10/01/23 21:49 Acetaminophen 325 Mg Tablet PO Q6H PRN Mild Pain (1-3) or Fever Azithromycin 250 mg 10/02/23 21:00 10/02/23 20:40
--- NOTE | 2023-10-03 09:51 | PC.NURSE ---
pt requesting to take PO meds when gets here
[2023-10-03] MEDS: guaiFENesin/DEXTROMETHORPHAN 10 ML UDC PO (13:10)
[2023-10-03] MEDS: AZITHROMYCIN 250 MG TABLET PO (20:32)
[2023-10-04] VITALS (16 sets, daily range): BP systolic 147–154; BP diastolic 71–82; PULSE 101–117; RESP 16–20; TEMP 36.4–36.6; O2SAT 94–97
[2023-10-04] MEDS: IPRATROPIUM BR 0.02% INH SOLN 0.5 MG/2.5 ML VIAL INHALATION ×5 (05:25→20:26)
[2023-10-04] MEDS: LEVALBUTEROL NEB 1.25 MG/3 ML INHALATION ×5 (05:25→20:26)
[2023-10-04 06:07] LABS: Basophils Percent Auto 0.1 % (0.2-1.2); Hematocrit 44.3 % (42.0-52.0); Hemoglobin 14.5 g/dL (14.0-18.0); Immature Granulocyte Absolute 0.12 K/mm3 (0.00-0.031); Immature Granulocyte Percent A 0.7 % (0-0.5); Lymphocytes Absolute Auto 1.42 K/mm3 (0.9-3.2); Lymphocytes Percent Auto 8.8 % (18.3-44.2); Mean Corpuscular HGB Conc 32.7 g/dl (32-36); Mean Corpuscular Hemoglobin 29.4 pg (26-34); Mean Corpuscular Volume 89.9 fl (80-100); Mean Platelet Volume 9.3 fl (7.4-10.4); Monocytes Percent Auto 6.2 % (2.6-8.5); Neutrophils Absolute Auto 13.5 K/mm3 (1.3-6.7); Neutrophils Percent Auto 84.2 % (45.5-73.1); Platelet Count Result 329 k/mm3 (150-375); Red Blood Count 4.93 M/mm3 (4.6-6.20); Red Cell Distribution Width 12.3 % (11.5-14.5); White Blood Count 16.1 K/mm3 (4.5-10.0)
[2023-10-04 06:19] LABS: Alanine Aminotransferase 65 U/L (6-50); Albumin Level 3.8 g/dL (3.5-5.1); Alkaline Phosphatase 68 U/L (38-126); Anion Gap 4 mmol/L (4-12); Aspartate Amino Transferase 38 U/L (17-59); Bilirubin,Total 0.5 mg/dL (0.2-1.3); Blood Urea Nitrogen 19 mg/dL (9-20); Calcium 8.8 mg/dL (8.4-10.2); Carbon Dioxide 30 mmol/L (22-30); Chloride 104 mmol/L (98-107); Estimated CRCL calculation 90 ml/min; Estimated Glomerular Filt Rate > 60; Glucose 122 mg/dL (65-110); Potassium 4.2 mmol/L (3.4-5.0); Sodium 138 mmol/L (137-145)
--- NOTE | 2023-10-04 08:21 | PM.IMPN ---
Progress Note: A&P Assessment and Plan (1) Acute respiratory failure with hypoxia: Code(s): J96.01 - Acute respiratory failure with hypoxia Status: Acute Assessment and Plan: SpO2 on arrival was low 90s at rest and dropped to 86% with ambulation. Room air at baseline. Started on 2L NC in the ED. - Symptoms: shortness of breath, cough, wheezing - Monitor Oxygen saturation, Oxygen via NC; wean oxygen as tolerated, keep SpO2 greater than 88% - Likely related to COPD, see #2 - Pulmonology following, appreciate recommendations (2) COPD (chronic obstructive pulmonary disease): Code(s): J44.9 - Chronic obstructive pulmonary disease, unspecified Status: Acute Assessment and Plan: Greater than 150 pack year history, quit August 2023 due to symptom onset. Continues to endorse shortness of breath, wheezing and productive cough. - Antibiotics: Azithromycin - Duonebz q6H and Albuterol q2H prn - Solu-Medrol 60 mg IVq12H, if patient condition continues to improve can reduce to 40 mg q12H - Monitor vital signs, I&Os, neuro status and patient is a fall risk - Monitor serum electrolytes, cultures and CBC - Monitor Oxygen saturation, Oxygen via NC; wean oxygen as tolerated, keep SpO2 greater than 88% - Sputum culture collected 09/30: Final results - growth of normal oropharyngeal emmanuel - MRSA negative - Pulmonology following (3) Elevated blood pressure reading: Code(s): R03.0 - Elevated blood-pressure reading, without diagnosis of hypertension Status: Acute Assessment and Plan: Blood pressures continue to be elevated, however patient continues to receive steroids. - Continue to monitor (4) Tachycardia: Code(s): R00.0 - Tachycardia, unspecified Status: Acute Assessment and Plan: Patient remains in sinus tachycardia, however he is receiving steroids and breathing treatments. Of note he has a history of cocaine use, he states he has not used since 2010. - Monitor - Echo negative - UDS negative - Chest CTA: No pulmonary embolus.Mild emphysema. Mucous plugging in the lower lobes. 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 He remains in sinus tachy. - UDS negative - Echo with LVEF >70% and grade I diastolic dysfunction Plan Cocern for AMANDO: Patient notes that he has been waking up every 1-2 hours overnight gasping for air requiring him to use his breathing treatment. He has since become fearful of sleep. He states these symptoms started at the start of his COPD symptoms. Apnea link negative on 2 L O2, as patient is weaned off of O2 may need to reevaluate Time Spent With Patient Time with patient: 25 - 35 minutes Subjective Date/time seen: 10/04/23 08:21 Interval history: 67-year-old male former smoker (greater than 150 pack-year history, quit August 2023) with suspected chronic obstructive pulmonary disease who presented to the emergency department from urgent care for evaluation of shortness of breath and hypoxia. Patient is pleasant lying comfortably in bed. He states he was feeling good this am, but when walking to the restroom became very short of breath with elevated heart rate. He continues to endorse shortness of breath, but notes that the cough has improved. The sputum culture was negative. CTA chest negative. Dopplers negative. He denies chest pain, palpitations, nausea/vomiting and changes in bowel/bladder. Discussed with patient that he may need home O2 at rest and the setting be increased with ambulation. He states understanding. Review of Systems Review of Systems: All systems reviewed & are unremarkable except as noted in HPI and below Exam Narrative: AF HR 106 RR 16 SpO2 97 2LNC BP 154/82 General: male in no acute respiratory distress who is nontoxic appearing, s
[2023-10-04] MEDS: methylPREDNISolone SOD SUCC 125 MG VIAL 60 MG IV PUSH ×2 (09:14→17:08)
[2023-10-04] MEDS: ENOXAPARIN 40 MG/0.4 ML SYRINGE SUB-Q (09:15)
[2023-10-04] MEDS: AZITHROMYCIN 250 MG TABLET PO (20:51)
[2023-10-05] VITALS (19 sets, daily range): BP systolic 155–166; BP diastolic 72–93; PULSE 94–115; RESP 18–20; TEMP 36.2–36.4; O2SAT 92–95
[2023-10-05] MEDS: LEVALBUTEROL NEB 1.25 MG/3 ML INHALATION ×7 (00:45→23:32)
[2023-10-05] MEDS: IPRATROPIUM BR 0.02% INH SOLN 0.5 MG/2.5 ML VIAL INHALATION ×7 (00:46→23:32)
[2023-10-05 05:59] LABS: Basophils Absolute Auto 0.1 K/mm3 (0.0-0.1); Basophils Percent Auto 0.3 % (0.2-1.2); Hemoglobin 14.5 g/dL (14.0-18.0); Immature Granulocyte Absolute 0.25 K/mm3 (0.00-0.031); Immature Granulocyte Percent A 1.7 % (0-0.5); Lymphocytes Absolute Auto 1.61 K/mm3 (0.9-3.2); Lymphocytes Percent Auto 11.2 % (18.3-44.2); Mean Corpuscular HGB Conc 31.5 g/dl (32-36); Mean Corpuscular Hemoglobin 28.6 pg (26-34); Mean Corpuscular Volume 90.7 fl (80-100); Mean Platelet Volume 9.5 fl (7.4-10.4); Monocytes Absolute Auto 1.1 K/mm3 (0.1-0.6); Monocytes Percent Auto 7.7 % (2.6-8.5); Neutrophils Absolute Auto 11.3 K/mm3 (1.3-6.7); Neutrophils Percent Auto 79.1 % (45.5-73.1); Platelet Count Result 364 k/mm3 (150-375); Red Blood Count 5.07 M/mm3 (4.6-6.20); Red Cell Distribution Width 11.9 % (11.5-14.5); White Blood Count 14.4 K/mm3 (4.5-10.0)
[2023-10-05 06:09] LABS: Alanine Aminotransferase 93 U/L (6-50); Albumin Level 3.8 g/dL (3.5-5.1); Alkaline Phosphatase 82 U/L (38-126); Anion Gap 5 mmol/L (4-12); Aspartate Amino Transferase 40 U/L (17-59); Bilirubin,Total 0.5 mg/dL (0.2-1.3); Blood Urea Nitrogen 20 mg/dL (9-20); Calcium 8.7 mg/dL (8.4-10.2); Carbon Dioxide 29 mmol/L (22-30); Chloride 103 mmol/L (98-107); Estimated CRCL calculation 100 ml/min; Estimated Glomerular Filt Rate > 60; Glucose 130 mg/dL (65-110); Sodium 137 mmol/L (137-145)
[2023-10-05] MEDS: ENOXAPARIN 40 MG/0.4 ML SYRINGE SUB-Q (09:00)
[2023-10-05] MEDS: methylPREDNISolone SOD SUCC 125 MG VIAL 60 MG IV PUSH (09:00)
--- NOTE | 2023-10-05 12:07 | PM.IMPN ---
Progress Note: A&P Assessment and Plan (1) Acute respiratory failure with hypoxia: Code(s): J96.01 - Acute respiratory failure with hypoxia Status: Acute Assessment and Plan: SpO2 on arrival was low 90s at rest and dropped to 86% with ambulation. Room air at baseline. Started on 2L NC in the ED. - Symptoms: shortness of breath, cough, wheezing - Continue to require 2L NC at rest - Monitor Oxygen saturation, Oxygen via NC; wean oxygen as tolerated, keep SpO2 greater than 88% - Likely related to COPD, see #2 - Pulmonology following, appreciate recommendations - Home O2 eval ordered (2) COPD (chronic obstructive pulmonary disease): Code(s): J44.9 - Chronic obstructive pulmonary disease, unspecified Status: Acute Assessment and Plan: Greater than 150 pack year history, quit August 2023 due to symptom onset. Continues to endorse shortness of breath, wheezing and productive cough. - Antibiotics: Azithromycin - Duonebz q6H and Albuterol q2H prn - Solu-Medrol 40 mg IV BID - Monitor vital signs, I&Os, neuro status and patient is a fall risk - Monitor serum electrolytes, cultures and CBC - Monitor Oxygen saturation, Oxygen via NC; wean oxygen as tolerated, keep SpO2 greater than 88% - Sputum culture collected 09/30: Final results - growth of normal oropharyngeal emmanuel - MRSA negative - Pulmonology following (3) Elevated blood pressure reading: Code(s): R03.0 - Elevated blood-pressure reading, without diagnosis of hypertension Status: Acute Assessment and Plan: Blood pressures continue to be elevated, however patient continues to receive steroids. - Continue to monitor (4) Tachycardia: Code(s): R00.0 - Tachycardia, unspecified Status: Acute Assessment and Plan: Patient remains in sinus tachycardia, however he is receiving steroids and breathing treatments. Of note he has a history of cocaine use, he states he has not used since 2010. - Monitor - Echo negative - UDS negative - Chest CTA: No pulmonary embolus.Mild emphysema. Mucous plugging in the lower lobes. 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 He remains in sinus tachy. - UDS negative - Echo with LVEF >70% and grade I diastolic dysfunction Plan Cocern for AMANDO: Patient notes that he has been waking up every 1-2 hours overnight gasping for air requiring him to use his breathing treatment. He has since become fearful of sleep. He states these symptoms started at the start of his COPD symptoms. Apnea link negative on 2 L O2, as patient is weaned off of O2 may need to reevaluate Subjective Date/time seen: 10/05/23 12:07 Interval history: 67-year-old male former smoker (greater than 150 pack-year history, quit August 2023) with suspected chronic obstructive pulmonary disease who presented to the emergency department from urgent care for evaluation of shortness of breath and hypoxia. Patient is pleasant lying comfortably in bed. 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 He continues to have wheezing on auscultation, but lungs are clear. He states that his shortness of breath has improved. He continues to have a productive cough. He continues to require 2L O2 at rest. Discussed with patient that he may need home O2 at rest and the setting be increased with ambulation. Home O2 evaluation ordered. His heart rate remains tachycardic, however noted to be in the lower 100s likely related to his breathing treatments. Patient denies chest pain, palpitations, nausea/vomiting, and changes in bowel/bladder. Review of Systems Review of Systems: All systems reviewed & are unremarkable except as noted in HPI and below Exam Narrative: AF HR 103 RR 18 SpO2 92 2LNC BP 166/93
[2023-10-05] MEDS: methylPREDNISolone SOD SUCC 125 MG VIAL 40 MG IV PUSH (17:18)
[2023-10-05] MEDS: AZITHROMYCIN 250 MG TABLET PO (21:18)
[2023-10-06] VITALS (13 sets, daily range): BP systolic 149–153; BP diastolic 74–82; PULSE 94–128; RESP 18–20; TEMP 35.7–36.3; O2SAT 87–96
[2023-10-06] MEDS: IPRATROPIUM BR 0.02% INH SOLN 0.5 MG/2.5 ML VIAL INHALATION ×3 (03:35→11:05)
[2023-10-06] MEDS: LEVALBUTEROL NEB 1.25 MG/3 ML INHALATION ×3 (03:35→11:04)
[2023-10-06 06:18] LABS: Basophils Absolute Auto 0.1 K/mm3 (0.0-0.1); Basophils Percent Auto 0.4 % (0.2-1.2); Eosinophils Percent Auto 0.1 % (0-4.4); Hemoglobin 14.6 g/dL (14.0-18.0); Immature Granulocyte Absolute 0.41 K/mm3 (0.00-0.031); Immature Granulocyte Percent A 2.6 % (0-0.5); Lymphocytes Absolute Auto 1.73 K/mm3 (0.9-3.2); Mean Corpuscular HGB Conc 31.7 g/dl (32-36); Mean Corpuscular Hemoglobin 28.6 pg (26-34); Mean Corpuscular Volume 90.2 fl (80-100); Mean Platelet Volume 9.4 fl (7.4-10.4); Monocytes Absolute Auto 1.1 K/mm3 (0.1-0.6); Monocytes Percent Auto 7.3 % (2.6-8.5); Neutrophils Absolute Auto 12.3 K/mm3 (1.3-6.7); Neutrophils Percent Auto 78.6 % (45.5-73.1); Platelet Count Result 370 k/mm3 (150-375); Red Cell Distribution Width 11.9 % (11.5-14.5); White Blood Count 15.7 K/mm3 (4.5-10.0)
[2023-10-06 06:51] LABS: Alanine Aminotransferase 72 U/L (6-50); Albumin Level 3.8 g/dL (3.5-5.1); Alkaline Phosphatase 71 U/L (38-126); Anion Gap 5 mmol/L (4-12); Aspartate Amino Transferase 29 U/L (17-59); Bilirubin,Total 0.5 mg/dL (0.2-1.3); Blood Urea Nitrogen 17 mg/dL (9-20); Calcium 8.7 mg/dL (8.4-10.2); Carbon Dioxide 29 mmol/L (22-30); Chloride 102 mmol/L (98-107); Estimated CRCL calculation 100 ml/min; Estimated Glomerular Filt Rate > 60; Glucose 117 mg/dL (65-110); Potassium 4.2 mmol/L (3.4-5.0); Sodium 136 mmol/L (137-145)
--- NOTE | 2023-10-06 09:12 | HOMEO2EVAL ---
Evaluation was performed at [facility] Home Oxygen Evaluation RC: Home Oxygen (O2) Evaluation Start: 10/05/23 08:28 Freq: ONCE Status: Active Protocol: RPE Activity Type Activity Date Activity User E-sign Co-sign Detail Recorded Client Recorded Date Recorded By Document 10/06/23 08:54 KRM [email or web address] 10/06/23 09:12 KRM Document 10/06/23 09:00 [email or web address] [email or web address] 10/06/23 09:12 KRM Document 10/06/23 09:02 [email or web address] [email or web address] 10/06/23 09:12 KRM Document 10/06/23 09:05 KRM [email or web address] 10/06/23 09:12 KRM 10/06/23 10/06/23 10/06/23 08:54 09:00 09:02 Home O2 Evaluation [Oxygen] -Test Phase Resting Exercise Exercise -Oxygen Delivery Room Air Room Air Nasal Cannula -Oxygen Flow Rate (L/min) 1 [Pulse Oximetry] -Pulse Oximetry (90-100 %) 91 87 L 88 L [Pulse Rate] -Pulse Rate (60-100 beats/min) 117 H 128 H 120 H [Evaluation] -Activity Tolerance Good Good [Exercise] -Ambulation Distance (feet) -Ambulation Distance (meters) [Comments] -Home Oxygen Evaluation Comments [Charges] -Evaluation Charges 10/06/23 09:05 Home O2 Evaluation [Oxygen] -Test Phase Exercise -Oxygen Delivery Nasal Cannula -Oxygen Flow Rate (L/min) 2 [Pulse Oximetry] -Pulse Oximetry (90-100 %) 91 [Pulse Rate] -Pulse Rate (60-100 beats/min) 110 H [Evaluation] -Activity Tolerance Good [Exercise] -Ambulation Distance (feet) 200 -Ambulation Distance (meters) 60.95 [Comments] -Home Oxygen Evaluation Comments room air at rest, 2lpm with activity. [Charges] -Evaluation Charges O2 Evaluation by Pulmonary
--- NOTE | 2023-10-06 09:28 | PCRCNOTE ---
HOME O2 EVAL COMPLETED. PT. REQUIRES 2LPM O2 WITH ACTIV[facility]. FAXED PACKET TO [facility]. PT. REQUESTING POC.
--- NOTE | 2023-10-06 11:27 | PM.PNPUL ---
Progress Note: A&P Assessment and Plan (1) Acute exacerbation of chronic obstructive pulmonary disease: Code(s): J44.1 - Chronic obstructive pulmonary disease with (acute) exacerbation Status: Acute Assessment and Plan: A 67-year-old patient, who is a smoker, has been experiencing prolonged episodes of coughing, shortness of breath, and chest tightness for over a month. He has been undergoing treatment for a COPD exacerbation, which includes IV steroids, antibiotics, and short-acting bronchodilators. Over the past 24 hours, there has been a gradual improvement in his respiratory condition. The patient's diagnosis is either a COPD exacerbation or a combination of asthma and COPD, also known as overlap syndrome. It should be noted that his eosinophil count was found to be elevated on two separate occasions within the last month. 09/30:The treatment plan is as follows: Discontinue ceftriaxone, continue with Zithromax, and adjust the dosage of IV steroids to a lower amount, specifically 60 mg of Solu-Medrol twice a day. This dosage may further be reduced to 40 mg of Solu-Medrol twice a day if the patient's condition continues to improve over the weekend. Out of bed to chair, ambulating in room. 10/06/23: Patient Is breathing back at his baseline. He has improved since he was admitted. White blood cell count 15.7, creatinine 0.8. Home O2 assessment demonstrated no oxygen needed at rest, 2 L with activity. Overnight oximetry on 10/03/2023 on 2 L with recording duration 6 hours and 4 minutes, average saturation 95%, low saturation 92%, time with saturation less than or equal to 88% was 0 minutes, oxygen desaturation index 0.2. Currently the patient is on 2 L nasal cannula saturations 93%. States he is ready to go home. Plan: Patient has finished azithromycin for 5 days and today is day 6 of systemic steroids. He has no wheezing on exam. From a pulmonary perspective patient is ready to be discharged on these pulmonary medications: Beta agonist and muscarinic antagonist that insurance will cover (Anoro Ellipta 62.5/25 at 1 puff Q day, stiolto respimat 2.5/2.5 at 1 puff BID, bevespi aerosphere 9 mcg/4.8 at 2 puffs BID, combivent respimat at 2 puffs Q 4 HR or separate albuterol and atrovent inhalers at 2 puffs Q 4 HR) Rescue albuterol 2 puffs q.4 hours p.r.n. shortness of breath or wheezing No oxygen at rest, 2 L with activity and 2 L at night. Follow-up in the Pulmonary Clinic on November 02, appointment has been made. Discussed with Cherelle Powers, will sign off, call with questions. Subjective Date/time seen: 10/06/23 11:27 Interval history: Patient Is breathing back at his baseline. He has improved since he was admitted. White blood cell count 15.7, creatinine 0.8. Home O2 assessment demonstrated no oxygen needed at rest, 2 L with activity. Overnight oximetry on 10/03/2023 on 2 L with recording duration 6 hours and 4 minutes, average saturation 95%, low saturation 92%, time with saturation less than or equal to 88% was 0 minutes, oxygen desaturation index 0.2. Currently the patient is on 2 L nasal cannula saturations 93%. States he is ready to go home. Review of Systems Constitutional: Constitutional: Reports no additional constitutional complaints Eyes: Eyes: Reports no additional eye complaints ENT: Reports system reviewed and no additional complaints, except as documented Cardiovascular: Cardiovascular: Reports no additional cardiovascular complaints Respiratory: Respiratory: Reports no additional respiratory complaints Gastrointestinal: Gastrointestinal: Reports no additional gastrointestinal complaints Musculoskeletal: Musculoskeletal: Reports no additional musculoskeletal complaints Neurologic: Reports system reviewed and no additional complaints, except as documented Psychiatric: Psychiatric: Reports no additional psychiatric complaints Endocrine: Endocrine: Reports no additional endocrine
--- NOTE | 2023-10-06 13:31 | PM.DS ---
DS: Admitting Diagnosis Discharge Date 10/06/23 Admitting Diagnosis Acute respiratory failure with hypoxia COPD Elevated blood pressure reading Tachycardia History cocaine abuse DS: Discharge Diagnosis Discharge Diagnosis (1) Acute respiratory failure with hypoxia: Code(s): J96.01 - Acute respiratory failure with hypoxia Status: Acute (2) COPD (chronic obstructive pulmonary disease): Code(s): J44.9 - Chronic obstructive pulmonary disease, unspecified Status: Acute (3) Elevated blood pressure reading: Code(s): R03.0 - Elevated blood-pressure reading, without diagnosis of hypertension Status: Acute (4) Tachycardia: Code(s): R00.0 - Tachycardia, unspecified Status: Acute (5) History of cocaine abuse: Code(s): 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 SpO2 on arrival was low 90s at rest and dropped to 86% with ambulation. Room air at baseline. Started on 2L NC in the ED. Patient was started on COPD exacerbation therapy and pulmonology was consulted for new COPD diagnosis. Patient completed his course of steroids and antibiotics while inpatient. He had a home O2 evaluation performed and requires no oxygen at rest, 2 L with activity and 2 L at night based on apnea link. He will be discharged on Anoro Ellipta 62.5/25 at 1 puff daily and a rescue albuterol inhaler with plan to follow up with pulmonology on 11/02. Patient also received PCP resources from care coordination and plans to establish with one soon. Patient discharged home with family in stable condition. He is to take his medications as prescribed and follow up with pulmonology as scheduled. Status at Discharge Functional status at discharge: independent ambulation Time Spent with Patient Time attestation: Total time spent providing and/or coordinating discharge services: Time spent: Greater than 30 minutes Exam Narrative: AF HR 103 RR 18 SpO2 95 2LNC BP 149/74 General: male in no acute respiratory distress who is nontoxic appearing, sitting up in bed with family at bedside HEENT: Normocephalic. Atraumatic. Pupils equal round reactive to light. Extraocular movement intact. Sclera clear and anicteric. No facial asymmetry. Chest: Lungs are clear to auscultation bilaterally without wheezing. No crackles. CV: Heart was tachycardic with regular rhythm. S1/S2. No murmurs, gallops, or rubs. Abd: Abdomen was soft. Nontender. Nondistended. Positive bowel sounds. No organomegaly or masses. Ext: No clubbing, cyanosis, or edema. 2+ DP pulses bilaterally. Neuro: Patient is alert and oriented x4. Cranial nerves 2-12 are intact. Speech is clear. Psych: Normal mood and affect. Patient is pleasant and cooperative. Skin: Warm and dry. No rashes noted. DS: Data Data Completed and Pending Completed studies during hospitalization: Chest CTA Venous doppler Chest XR Chest XR Chest XR Labs on day of discharge: Labs from last 24 hours 10/06/23 05:50 WBC 15.7 H RBC 5.10 Hgb 14.6 Hct 46.0 MCV 90.2 MCH 28.6 MCHC 31.7 L RDW 11.9 Plt Count 370 MPV 9.4 Immature Gran % (Auto) 2.6 H Neut % (Auto) 78.6 H Lymph % (Auto) 11.0 L [place] % (Auto) 7.3 Eos % (Auto) 0.1 Baso % (Auto) 0.4 Lymph # (Auto) 1.73 [place] # (Auto) 1.1 H Eos # (Auto) 0.0 Baso # (Auto) 0.1 Abs Immat Gran (auto) 0.41 H Absolute Neuts (auto) 12.3 H Absolute Nucleated RBC 0.000 Nucleated RBC % 0.0 Sodium 136 L Potassium 4.2 Chloride 102 Carbon Dioxide 2
== END 2023-10-06 14:50 | disposition home or self-care (01) | DRG 190 ==
LOC: ANHED 14:50 → ANH3MEDSUR 15:38
PROVIDERS: Internal Medicine Pulmonary Disease; Physician Assistant; Student in an Organized Health Care Education/Training Program; Admitting Provider General Practice; Emergency Provider Emergency Medicine; Visit Provider Internal Medicine
DX: J44.1 Chronic obstructive pulmonary disease with (acute) exacerbation (principal); J96.01 Acute respiratory failure with hypoxia; R03.0 Elevated blood-pressure reading, without diagnosis of hypertension; R00.0 Tachycardia, unspecified; F14.11 Cocaine abuse, in remission; Z20.822 Contact with and (suspected) exposure to COVID-19; Z87.891 Personal history of nicotine dependence
CPT/HCPCS: 36415; 71046; 71275; 80048; 80053; 80307; 81003; 83735; 85025; 85027; 87070; 87205; 87637; 87641; 93005; 93970; 94618; 94640; 94762; 96365; 96366; 96372; 96375; 97110; 97161; 97165; 97530; 99285; A9270; C8929; G0378; J0696; J1650; J2919; Q9957; Q9967